=== PATIENT | male | born 1975 | race Caucasian/White ===

== ENCOUNTER → 2017-12-30 | Outpatient (CLI) | payer OTHER ==
--- NOTE | 2018-01-01 07:34 | XR ---
EXAMINATION TYPE: XR cervical spine limited DATE OF EXAM: 12/30/2017 CLINICAL HISTORY: pain TECHNIQUE: 3 views of the cervical spine are submitted. COMPARISON: None. FINDINGS: There is satisfactory in alignment without evidence of acute fracture or dislocation. The pre-vertebral soft tissue appears within normal limits. Mild degenerative disc space narrowing at C5 -6 and C6-7. The C1-C2 articulation is unremarkable on the open mouth view. IMPRESSION: No acute fracture or dislocation is seen in the cervical spine.
--- NOTE | 2018-01-01 10:01 | XR ---
Scoliosis survey HISTORY: Chronic back pain 2 views of the thoracic lumbar spine submitted on a total of 4 images. There is an S-shaped thoracic lumbar scoliosis. Levoscoliosis is centered at T10 corresponding to an angle of approximately 14 degrees with a rotatory component. Compensatory dextroscoliosis in the lumb ar spine corresponds to 7 degrees. Corresponding curve in the thoracic spine is approximately 10 degr ees centered at T6-7. Thoracic and lumbar vertebral bodies show preserved height and bone mineralizat ion. Disc spaces are maintained. IMPRESSION: Scoliosis.
== END | disposition home or self-care (01) ==
LOC: RADXRMAIN 11:13
PROVIDERS: ATTEND Family Medicine
DX: M41.85 Other forms of scoliosis, thoracolumbar region (principal); M54.2 Cervicalgia; G89.29 Other chronic pain
CPT/HCPCS: 72040; 72082

== ENCOUNTER → 2018-01-31 | Outpatient (CLI) | payer OTHER ==
--- NOTE | 2018-01-31 14:35 | NM ---
EXAMINATION TYPE: NM bone scan whole body DATE OF EXAM: 01/31/2018 COMPARISON: NONE HISTORY: Low back pain Delayed whole-body scanning was performed following the injection of 25.1 mCi Tc 99m MDP. Images acq uired 3 hours post injection. FINDINGS: There is faint abnormal uptake throughout the thoracic spine likely degenerative. No suspicious uptak e within the lumbar spine. Abnormal uptake involving the right ankle may been the basis of previous t rauma or post arthritic. Abnormal uptake involving the lower cervical spine likely degenerative. Abnormal uptake involving the shoulders likely post arthritic. IMPRESSION: Faint abnormal uptake involving the lower cervical and thoracic vertebral column likely degenerative. Correlate with MRI as clinically warranted. 2. No definite suspicious uptake involving the lumbar spine.
== END | disposition home or self-care (01) ==
LOC: RADNMMAIN 10:00
PROVIDERS: ATTEND Physical Medicine & Rehabilitation
DX: R93.7 Abnormal findings on diagnostic imaging of other parts of musculoskeletal system (principal); M54.5 Low back pain; M54.2 Cervicalgia; M54.6 Pain in thoracic spine
CPT/HCPCS: 78306; A9503

== ENCOUNTER → 2022-04-04 | Outpatient (CLI) | payer OTHER ==
--- NOTE | 2022-04-04 15:10 | XR ---
EXAMINATION TYPE: XR cervical spine limited DATE OF EXAM: 04/04/2022 COMPARISON: 12/30/2017 HISTORY: Pain TECHNIQUE: Three views are submitted. FINDINGS: The odontoid is intact. There are no compression deformities. The prevertebral soft tissue structur es are within normal limits. Mild narrowing of the C5-6 C7 disc spaces with posterior spondylosis. S imilar to prior exam. IMPRESSION: 1. 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
--- NOTE | 2022-04-04 15:11 | XR ---
EXAMINATION TYPE: XR thoracic spine 2V DATE OF EXAM: 04/04/2022 COMPARISON: NONE HISTORY: Pain TECHNIQUE: 3 views submitted FINDINGS: Alignment is anatomic. There is no compression deformities. There is a scoliotic curvature of the th oracic spine. Vertebral body height and disc space appears fairly well preserved. Pedicles are intact . IMPRESSION: 1. Scoliosis
[2022-04-05 01:46] LABS: C Reactive Protein <0.30 mg/dL (0.00-0.80); Creatine Kinase 4733 U/L (35-257); Rheumatoid Factor, Qnt <10 IU/mL (0-15)
[2022-04-06 12:23] LABS: HLA B27 NEGATIVE
[2022-04-06 12:29] LABS: APTT 40 Sec(s) (<43); Dilute Russell Viper Venom 41 Sec(s) (<44)
== END | disposition home or self-care (01) ==
LOC: RADXRMAIN 14:48
PROVIDERS: ATTEND Nurse Practitioner Adult Health
DX: M51.34 Other intervertebral disc degeneration, thoracic region (principal); M50.322 Other cervical disc degeneration at C5-C6 level; M47.812 Spondylosis without myelopathy or radiculopathy, cervical region; M41.34 Thoracogenic scoliosis, thoracic region; M25.50 Pain in unspecified joint
CPT/HCPCS: 72040; 72070; 82550; 85613; 85652; 85730; 86038; 86140; 86431; 86812